=== PATIENT | male | born 1990 | race Caucasian/White ===

== ENCOUNTER 2018-04-24 15:26 | Emergency (ER) | payer SELFPAY ==
[2018-04-24 15:37] VITALS: BP 123/88; PULSE 71; RESP 16; TEMP 98.5; O2SAT 98
--- NOTE | 2018-04-24 15:49 | PD ---
HPI Chief Complaint: Bite or Sting Time Seen by Provider: 15:43 Travel History International Travel<30 days: No Contact w/Intl Traveler<30days: No Traveled to known affect area: No History of Present Illness HPI 27-year-old male presents to emergency department with complaint of dog bite wound to his bilateral facial cheeks and nose since Sunday. He does not know the dog's vaccination status. He is not up-to-date on his tetanus vaccination. He denies fever, vomiting. Denies pain. Has been using topical antibiotic ointment for symptom management. No known aggravating factors. No primary care provider. Denies significant past medical history. No known allergies. Has no other medical complaints. No other modifying factors or associated signs and symptoms. [facility] Social History Tobacco Use: No Allergies-Medications (Allergen,Severity, Reaction): Coded Allergies: No Known Allergies (Unverified , 04/24/18) Reported Meds & Prescriptions Reported Meds & Active Scripts Active Augmentin (Amoxicillin-Clavulanate) 875-125 Mg Tab 1 Tab PO BID 10 Days Review of Systems Except as stated in HPI: all other systems reviewed are Neg Physical Exam Narrative GENERAL: Well-nourished, well-developed black male patient, in no acute distress SKIN: Warm and dry. Scabbed scratch like abrasions to bilateral facial cheeks and nose; no erythema, edema, drainage. No signs of infection. No facial edema. No orbital erythema, cellulitis noted/ HEAD: Atraumatic. Normocephalic. EYES: Pupils equal and round at 3 mm. No scleral icterus. No injection or drainage. EOMI. ENT: Mucosa pink and moist. Airway patent. NECK: Trachea midline. CARDIOVASCULAR: Regular rate. RESPIRATORY: No accessory muscle use. GASTROINTESTINAL: Flat. MUSCULOSKELETAL: No obvious deformities. No clubbing. No cyanosis. No edema. NEUROLOGICAL: Awake and alert. Oriented 3. No obvious cranial nerve deficits. Motor grossly within normal limits. Normal speech. PSYCHIATRIC: Appropriate mood and affect; insight and judgment normal. Data Data Last Documented VS Vital Signs Date Time Temp Pulse Resp B/P (MAP) Pulse Ox O2 Delivery O2 Flow Rate FiO2 04/24/18 15:37 98.5 71 16 123/88 (100) 98 Orders Orders Tetanus/Diphtheria Tox Adult (Tetanus/Di (04/24/18 16:00) Ed Discharge Order (04/24/18 15:47) [facility] Medical Decision Making Medical Screen Exam Complete: Yes Emergency Medical Condition: Yes Medical Record Reviewed: Yes Differential Diagnosis Dog bite, tetanus update, medical clearance Narrative Course 27-year-old male with multiple scabbed, scratch like abrasions to his facial cheeks and nose from a dog bite wound that occurred on Sunday. I discussed rabies vaccination and he does not want to initiate rabies vaccinations. Tetanus updated in the ER. There are no signs of infection to his facial wounds. His face is nonerythematous and nonedematous. He denies pain. Augmentin prescribed for home. Instructed patient to follow up with primary care provider. Patient verbalizes understanding and agreement with treatment plan. Patient is medically cleared and stable for discharge. Discussed reasons to return to the emergency department. Patient agrees with treatment plan. The patients vital signs are stable and the patient is stable for outpatient follow-up and treatment. Patient discharged home, stable and in no acute distress. Diagnosis Primary Impression: Dog bite of face Qualified Codes: S01.85XA - Open bite of other part of head, initial encounter ; W54.0XXA - Bitten by dog, initial encounter Referrals: [facility] Primary Care Physician Patient Instructions: Acute Wound Care (DC), Animal Bite (ED), General Instructions Additional Instructions: Keep area clean and dry Topical antibiotic ointment as directed and as needed for wound care Antibiotics as prescribed and complete full course Follow-up with primary care provider Return to the emergency department immediately with worsening of symptoms Med/Other Pt SpecificInfo: Prescription(s) given Scripts Amoxicillin-Clavulanate (Augmentin) 875-125 Mg Tab 1 TAB PO BID for Infection for 10 Days, #20 TAB 0 Refills Prov: Cathy Figueroa 04/24/18 Disposition: 01 DISCHARGE HOME Condition: Stable Cathy Figueroa Apr 24, 2018 15:49
[2018-04-24] MEDS ORDERED: AUGM875T3 PO (15:53)
[2018-04-24] MEDS ORDERED: TETANUS/DIPHTHERIA TOXOID ADULT 0.5 ML VIAL IM ONE (16:00)
== END 2018-04-24 16:06 | disposition home or self-care (01) ==
LOC: NEPK 15:26
DX: S01.85XA Open bite of other part of head, initial encounter (principal); W54.0XXA Bitten by dog, initial encounter; Z23 Encounter for immunization
CPT/HCPCS: 90471; 90714